=== PATIENT | male | born 1940 | race Caucasian/White ===

== ENCOUNTER 2016-06-19 21:50 | Inpatient (IN) | payer OTHER ==
[~2016-06-19] VITALS: Ht 170.2 cm; Wt 89.5 kg
[~2016-06-19 21:50] MED LIST: ADULT LOW DOSE81 M1 PO; ADVAIR 250/501 DISK IH; ALBUTEROL SULF8.5 GM IH; ALBUTEROL2.5 MG/3 M IH; ALKA-SELTZER P1 EAC7 PO; ALPHAGAN P100 DROP/1 RIGHT EYE; ALPHAGAN P100 DROP/5 RIGHT EYE; ALPRAZOLAM0.25 M2 PO; ALTACE10 MG PO; ALTACE2.5 MG PO; ALTACE5 MG PO; AMIODARONE HCL200 MG PO; ASCORBIC ACID500 M3 PO; ASPIR-LOW81 MG PO; ASPIRIN325 MG PO; ATORVASTATIN CA40 MG PO; BREO ELLIPTA I1 EACH IH; BUDESONIDE0.5 MG/2 M IH; CARVEDILOL12.5 MG PO; CARVEDILOL6.25 MG PO; CENTRUM SILVER1 EAC1 PO; CENTRUM SILVER1 EAC3 PO; CORDARONE200 MG PO; COREG3.125 M1 PO; DAILY VALUE1 EACH PO; ESSENTIAL DAIL1 EACH PO; FENOFIBRATE160 M1 PO; FLOMAX0.4 MG PO; FUROSEMIDE40 MG PO; GARLIC1 EACH PO; GARLIC1000 MG PO; GLIMEPIRIDE2 MG PO; GLUCOVANCE 51 TABLET PO; K-DUR20 MEQ PO; LASIX40 MG PO; LEVAQUIN750 MG PO; LEVEMIR FL100 UNIT/1 SC; LIDODERM 5% P1 PATCH TD; LIPITOR40 MG PO; LO-DOSE ASPIRIN81 M1 PO; LOFIBRA,TRIGLI160 MG PO; LOPRESSOR25 MG PO; LOPRESSOR50 MG PO; LUMIGAN 0.50 DROP/22 RIGHT EYE; MECLIZINE HCL25 MG PO; METFORMIN HCL500 MG PO; METOPROLOL SUC100 MG PO; METOPROLOL SUCC50 MG PO; METOPROLOL TART25 MG PO; METOPROLOL TART50 MG PO; MULTI-DAY VITA1 EACH PO; NITROSTAT0.4 MG SL; ODOR FREE GARL1 EAC1 PO; ODOR FREE GARL1 EACH PO; OMEPRAZOLE40 M1 PO; PERCOCET 5/31 TABLET PO; PERFOROMIS20 MCG/2 M IH; PREDNISONE10 MG PO; PRILOSEC40 MG PO; PROAIR HFA8.5 GM IH; PROVENTIL HFA6.7 GM IH; PROVENTIL,2.5 MG/3 M IH; RAMIPRIL10 MG PO; RAMIPRIL5 MG PO; SPIRIVA RESPIMAT4 GM IH; SPIRIVA1 INHALATI IH; SPIRONOLACTONE25 MG PO; STOOL SOFTENER250 MG PO; TOPROL XL25 MG PO; TOPROL XL50 MG PO; TYLENOL EXTRA500 MG PO; TYLENOL WITH C1 EACH PO; VENTOLIN HFA18 GM IH; XALATAN2.5 ML RIGHT EYE; XANAX0.25 MG PO; ZOFRAN4 MG PO
[2016-06-19 23:18] LABS: HEMATOCRIT 36.8 % (38.0-50.0); MCH 25.1 PG (29.0-34.0); MCHC 31.3 G/DL (30.0-36.0); MCV 80.2 FL (86-99); MEAN PLAT.VOLUME 11.6 uM^3 (9.0-12.4); PLATELET COUNT 230 K/uL (156-360); RBC DIS.WIDTH-CV 16.4 % (11.8-14.6); RBC DIS.WIDTH-SD 46.7 % (39-53); RED BLOOD COUNT 4.59 M/uL (4.00-5.50); WHITE BLOOD COUNT 9.3 K/uL (4.1-10.2)
[2016-06-19 23:21] LABS: CHLORIDE 98 mEq/L (99-109); POTASSIUM 4.7 mEq/L (3.7-5.4); SODIUM 136 mEq/L (136-147)
[2016-06-19 23:23] LABS: GLUCOSE 105 mg/dL (70-99)
[2016-06-19 23:24] LABS: ANION GAP 14 MEQ/L (2-14)
[2016-06-19 23:27] LABS: GFR ESTIMATE (CALCULATED) 45 mL/min/
[2016-06-19 23:28] LABS: UREA NITROGEN (BUN) 45 mg/dL (9-23)
[2016-06-19 23:30] LABS: TROP-I INTERPRETATION NEGATIVE; TROPONIN-I < 0.01 ng/mL (0.0-0.30)
[2016-06-20 10:30] VITALS: BP 99/59
[2016-06-20 11:28] VITALS: BP 99/59
[2016-06-20] MEDS ORDERED: LASIX40 MG PO (13:15)
[2016-06-20] MEDS ORDERED: XANAX0.5 MG PO (13:15)
[2016-06-20] MEDS ORDERED: SEROQUEL50 MG PO (13:20)
[2016-06-20] MEDS ORDERED: SERTRALINE HCL50 MG PO (13:20)
[2016-06-20 16:00] VITALS: BP 94/51
[2016-06-20 20:20] VITALS: BP 106/65
[2016-06-20 22:29] LABS: POINT-OF-CARE METER ID UU13113698
[2016-06-20 23:55] VITALS: BP 102/65
[2016-06-21 04:00] VITALS: BP 111/67
[2016-06-21 05:39] LABS: HEMATOCRIT 36.6 % (38.0-50.0); MCH 25.1 PG (29.0-34.0); MCHC 30.9 G/DL (30.0-36.0); MCV 81.2 FL (86-99); MEAN PLAT.VOLUME 11.2 uM^3 (9.0-12.4); PLATELET COUNT 210 K/uL (156-360); RBC DIS.WIDTH-CV 16.5 % (11.8-14.6); RBC DIS.WIDTH-SD 48.8 % (39-53); RED BLOOD COUNT 4.51 M/uL (4.00-5.50)
[2016-06-21 05:43] LABS: ALKALINE PHOSPHATASE 72 IU/L (3-129); ANION GAP 11 MEQ/L (2-14); CHLORIDE 97 MEQ/L (99-109); GFR ESTIMATE (CALCULATED) 57 mL/min/; POTASSIUM 4.9 MEQ/L (3.7-5.4); SAMPLE HEMOLYSIS CHECK 0; SAMPLE ICTERIC CHECK 0; SAMPLE LIPEMIA CHECK 0; SODIUM 134 MEQ/L (136-147); UREA NITROGEN (BUN) 37 mg/dL (9-23)
[2016-06-21 05:46] LABS: GLUCOSE 186 mg/dL (70-99); TOTAL BILIRUBIN 0.9 MG/DL (0.0-1.0)
[2016-06-21 07:30] VITALS: BP 105/75
[2016-06-21 12:01] VITALS: BP 100/59
[2016-06-21 12:43] LABS: ADD MIUA? NO; BILIRUBIN NEGATIVE; BLOOD NEGATIVE; COLOR YELLOW ((YELLOW)); GLUCOSE (STRIP) 100; KETONES NEGATIVE; LEUKOCYTES NEGATIVE; NITRITE NEGATIVE; PH, URINE 5.5 (5-8); PROTEIN (STRIP) NEGATIVE
[2016-06-21 14:11] LABS: UCUL ADDED? NO
[2016-06-21 16:40] VITALS: BP 94/54
[2016-06-21 20:00] VITALS: BP 111/59
[2016-06-21 20:39] LABS: POINT-OF-CARE METER ID UU13113698; POINT-OF-CARE USER ID ENVMNS
[2016-06-21 23:55] VITALS: BP 90/63
[2016-06-22 04:00] VITALS: BP 95/64
[2016-06-22 05:46] LABS: ANION GAP 11 MEQ/L (2-14); CHLORIDE 94 MEQ/L (99-109); GFR ESTIMATE (CALCULATED) 52 mL/min/; GLUCOSE 203 mg/dL (70-99); POTASSIUM 5.4 MEQ/L (3.7-5.4); SAMPLE HEMOLYSIS CHECK 0; SAMPLE ICTERIC CHECK 0; SAMPLE LIPEMIA CHECK 0; SODIUM 130 MEQ/L (136-147); UREA NITROGEN (BUN) 42 mg/dL (9-23)
[2016-06-22 06:09] LABS: HEMATOCRIT 36.5 % (38.0-50.0); MCH 24.6 PG (29.0-34.0); MCHC 30.7 G/DL (30.0-36.0); MCV 80.2 FL (86-99); MEAN PLAT.VOLUME 11.5 uM^3 (9.0-12.4); PLATELET COUNT 243 K/uL (156-360); RBC DIS.WIDTH-CV 16.3 % (11.8-14.6); RBC DIS.WIDTH-SD 47.7 % (39-53); RED BLOOD COUNT 4.55 M/uL (4.00-5.50)
[2016-06-22 06:12] LABS: WHITE BLOOD COUNT 11.7 K/uL (4.1-10.2)
[2016-06-22 07:15] VITALS: BP 90/61
[2016-06-22 12:02] VITALS: BP 87/59
[2016-06-22 16:14] LABS: POINT-OF-CARE METER ID UU13113698
[2016-06-22 16:55] VITALS: BP 93/63
[2016-06-22 20:08] VITALS: BP 100/67
[2016-06-23] VITALS (7 sets, daily range): BP systolic 92–104; BP diastolic 61–68
[2016-06-23 06:34] LABS: HEMATOCRIT 38.6 % (38.0-50.0); MCH 25.3 PG (29.0-34.0); MCHC 31.3 G/DL (30.0-36.0); MCV 80.6 FL (86-99); MEAN PLAT.VOLUME 11.5 uM^3 (9.0-12.4); NRBC (%) 1.9 /100 WBC (0-0); PLATELET COUNT 248 K/uL (156-360); RBC DIS.WIDTH-CV 16.5 % (11.8-14.6); RBC DIS.WIDTH-SD 48.3 % (39-53); RED BLOOD COUNT 4.79 M/uL (4.00-5.50)
[2016-06-23 06:39] LABS: EOSINOPHIL (%) 0 % (0-5); IMMATURE GRANULOCYTE (%) 1.4 % (0.0-0.7); IMMATURE GRANULOCYTE COUNT 0.2 K/uL; MONOCYTE (%) 5.9 % (3-12); MONOCYTE COUNT 0.7 K/uL (0-0.8); NEUTROPHIL (%) 84.4 % (45-76); NEUTROPHIL COUNT 10.1 K/uL (1.8-6.4)
[2016-06-23 07:20] LABS: ANION GAP 13 MEQ/L (2-14); CHLORIDE 93 MEQ/L (99-109); GFR ESTIMATE (CALCULATED) 42 mL/min/; GLUCOSE 184 mg/dL (70-99); SAMPLE HEMOLYSIS CHECK 0; SAMPLE ICTERIC CHECK 0; SAMPLE LIPEMIA CHECK 0; SODIUM 130 MEQ/L (136-147); UREA NITROGEN (BUN) 58 mg/dL (9-23)
[2016-06-23 07:26] LABS: POTASSIUM 6.5 MEQ/L (3.7-5.4)
[2016-06-24 05:42] VITALS: BP 89/56
[2016-06-24 06:51] LABS: MEAN PLAT.VOLUME 11.8 uM^3 (9.0-12.4); PLATELET COUNT 250 K/uL (156-360)
[2016-06-24 07:17] LABS: EOSINOPHIL (%) 0.1 % (0-5); IMMATURE GRANULOCYTE (%) 1.5 % (0.0-0.7); IMMATURE GRANULOCYTE COUNT 0.2 K/uL; LYMPHOCYTE COUNT 1.8 K/uL (1.0-2.8); MONOCYTE (%) 15.6 % (3-12); MONOCYTE COUNT 2.1 K/uL (0-0.8); NEUTROPHIL (%) 69.5 % (45-76); NEUTROPHIL COUNT 9.3 K/uL (1.8-6.4)
[2016-06-24 07:18] LABS: ANION GAP 12 MEQ/L (2-14); CHLORIDE 94 MEQ/L (99-109); GFR ESTIMATE (CALCULATED) 37 mL/min/; POTASSIUM 5.7 MEQ/L (3.7-5.4); SAMPLE HEMOLYSIS CHECK 0; SAMPLE ICTERIC CHECK 0; SAMPLE LIPEMIA CHECK 0; SODIUM 131 MEQ/L (136-147); UREA NITROGEN (BUN) 62 mg/dL (9-23)
[2016-06-24 07:19] LABS: GLUCOSE 90 mg/dL (70-99)
[2016-06-24 07:29] LABS: ABS NEUTROPHIL COUNT 9.63; ANISOCYTOSIS 1+; HEMATOCRIT 38.4 % (38.0-50.0); MACROCYTES OCC; MCH 24.8 PG (29.0-34.0); MCHC 31.3 G/DL (30.0-36.0); MCV 79.5 FL (86-99); OVALOCYTES OCC; PLAT.SUFFICIENCY ADEQUATE; POLYCHROMASIA OCC; RBC DIS.WIDTH-CV 16.7 % (11.8-14.6); RBC DIS.WIDTH-SD 48.4 % (39-53); RED BLOOD COUNT 4.83 M/uL (4.00-5.50); USER ID SDF; WHITE BLOOD COUNT 13.4 K/uL (4.1-10.2)
[2016-06-24 07:52] LABS: POINT-OF-CARE METER ID UU13113781
[2016-06-24 08:30] VITALS: BP 84/54
[2016-06-24 11:38] LABS: POINT-OF-CARE METER ID UU13113781
[2016-06-24 11:45] VITALS: BP 99/61
[2016-06-24 16:41] VITALS: BP 100/65
[2016-06-24 19:29] VITALS: BP 102/70
[2016-06-24 21:01] LABS: POINT-OF-CARE METER ID UU13113698
[2016-06-24 23:41] VITALS: BP 99/71
[2016-06-25 04:39] VITALS: BP 96/66
[2016-06-25 06:52] LABS: MEAN PLAT.VOLUME 11.5 uM^3 (9.0-12.4); PLATELET COUNT 234 K/uL (156-360)
[2016-06-25 07:16] LABS: MCH 24.9 PG (29.0-34.0); MCHC 31.4 G/DL (30.0-36.0); MCV 79.4 FL (86-99); RBC DIS.WIDTH-CV 16.6 % (11.8-14.6); RED BLOOD COUNT 4.66 M/uL (4.00-5.50); WHITE BLOOD COUNT 14.2 K/uL (4.1-10.2)
[2016-06-25 07:21] LABS: ANION GAP 12 MEQ/L (2-14); CHLORIDE 93 MEQ/L (99-109); GFR ESTIMATE (CALCULATED) 45 mL/min/; POTASSIUM 4.7 MEQ/L (3.7-5.4); SAMPLE HEMOLYSIS CHECK 0; SAMPLE ICTERIC CHECK 0; SAMPLE LIPEMIA CHECK 0; SODIUM 131 MEQ/L (136-147); UREA NITROGEN (BUN) 67 mg/dL (9-23)
[2016-06-25 07:22] LABS: GLUCOSE 50 mg/dL (70-99)
[2016-06-25 08:10] VITALS: BP 100/70
[2016-06-25 08:20] LABS: ABS NEUTROPHIL COUNT 11.09; ANISOCYTOSIS 1+; EOSINOPHIL (%) 0.1 % (0-5); IMMATURE GRANULOCYTE (%) 1.8 % (0.0-0.7); IMMATURE GRANULOCYTE COUNT 0.3 K/uL; MACROCYTES OCC; MONOCYTE (%) 15.1 % (3-12); MONOCYTE COUNT 2.2 K/uL (0-0.8); NEUTROPHIL COUNT 9.8 K/uL (1.8-6.4); OVALOCYTES OCC; PLAT.SUFFICIENCY ADEQUATE; USER ID STC
[2016-06-25 08:54] LABS: POINT-OF-CARE METER ID UU13113698
[2016-06-25 11:10] LABS: POINT-OF-CARE METER ID UU14174216
[2016-06-25 13:20] VITALS: BP 112/64
[2016-06-25 15:40] VITALS: BP 98/58
[2016-06-25 20:14] VITALS: BP 98/61
[2016-06-25 21:34] VITALS: BP 100/64
[2016-06-25 21:38] LABS: POINT-OF-CARE METER ID UU13113781
[2016-06-26] VITALS (7 sets, daily range): BP systolic 90–103; BP diastolic 50–67
[2016-06-26 06:47] LABS: MEAN PLAT.VOLUME 11.7 uM^3 (9.0-12.4); PLATELET COUNT 229 K/uL (156-360)
[2016-06-26 07:13] LABS: ANION GAP 9 MEQ/L (2-14); CHLORIDE 94 MEQ/L (99-109); GFR ESTIMATE (CALCULATED) 48 mL/min/; POTASSIUM 4.5 MEQ/L (3.7-5.4); SAMPLE HEMOLYSIS CHECK 0; SAMPLE ICTERIC CHECK 0; SAMPLE LIPEMIA CHECK 0; SODIUM 131 MEQ/L (136-147); UREA NITROGEN (BUN) 55 mg/dL (9-23)
[2016-06-26 07:18] LABS: GLUCOSE 86 mg/dL (70-99)
[2016-06-26 08:00] LABS: POINT-OF-CARE METER ID UU13113781
[2016-06-26 08:20] LABS: EOSINOPHIL (%) 0.8 % (0-5); EOSINOPHIL COUNT 0.1 K/uL (0-0.3); HEMATOCRIT 37.2 % (38.0-50.0); HEMATOLOGY COMMENT 1 SMEAR COMPATIBLE; IMMATURE GRANULOCYTE (%) 2.6 % (0.0-0.7); IMMATURE GRANULOCYTE COUNT 0.3 K/uL; LYMPHOCYTE COUNT 1.5 K/uL (1.0-2.8); MCH 24.8 PG (29.0-34.0); MCHC 31.2 G/DL (30.0-36.0); MCV 79.7 FL (86-99); MONOCYTE COUNT 1.6 K/uL (0-0.8); NEUTROPHIL (%) 69.8 % (45-76); NEUTROPHIL COUNT 8.1 K/uL (1.8-6.4); PLAT.SUFFICIENCY ADEQUATE; RBC DIS.WIDTH-CV 16.6 % (11.8-14.6); RED BLOOD COUNT 4.67 M/uL (4.00-5.50); USER ID TLW; WHITE BLOOD COUNT 11.6 K/uL (4.1-10.2)
[2016-06-26 08:24] LABS: NRBC (%) ND /100 WBC (0-0)
[2016-06-26 16:25] LABS: POINT-OF-CARE METER ID UU14174216
[2016-06-27 05:00] VITALS: BP 96/54
[2016-06-27 06:43] LABS: HEMATOCRIT 36.2 % (38.0-50.0); MCH 24.3 PG (29.0-34.0); MCHC 30.7 G/DL (30.0-36.0); MCV 79.4 FL (86-99); MEAN PLAT.VOLUME 11.6 uM^3 (9.0-12.4); PLATELET COUNT 220 K/uL (156-360); RBC DIS.WIDTH-CV 16.4 % (11.8-14.6); RBC DIS.WIDTH-SD 47.6 % (39-53); RED BLOOD COUNT 4.56 M/uL (4.00-5.50); WHITE BLOOD COUNT 11.9 K/uL (4.1-10.2)
[2016-06-27 07:16] LABS: ANION GAP 8 MEQ/L (2-14); CHLORIDE 96 MEQ/L (99-109); GFR ESTIMATE (CALCULATED) > 59 mL/min/; POTASSIUM 4.8 MEQ/L (3.7-5.4); SAMPLE HEMOLYSIS CHECK 0; SAMPLE ICTERIC CHECK 0; SAMPLE LIPEMIA CHECK 0; SODIUM 132 MEQ/L (136-147); UREA NITROGEN (BUN) 42 mg/dL (9-23)
[2016-06-27 07:17] LABS: GLUCOSE 116 mg/dL (70-99)
[2016-06-27 07:20] VITALS: BP 93/59
[2016-06-27 07:59] LABS: POINT-OF-CARE USER ID ENVKC36
[2016-06-27 11:00] VITALS: BP 92/58
[2016-06-27 11:38] LABS: POINT-OF-CARE USER ID ENVKC36
[2016-06-27] MEDS ORDERED: ADVAIR HFA120 INHALA IH (11:39)
[2016-06-27] MEDS ORDERED: PREDNISONE5 M1 PO (11:39)
[2016-06-27] MEDS ORDERED: XANAX0.5 MG PO (12:04)
[2016-06-27 16:00] VITALS: BP 95/65
[2016-06-27 17:02] LABS: POINT-OF-CARE METER ID UU13113698; POINT-OF-CARE USER ID ENVKC36
== END 2016-06-27 17:55 | DRG 291 ==
LOC: EME 21:50 → EDOF 06-20 06:10 → 4EAST 06-20 06:10
PROVIDERS: Hospitalist; Internal Medicine; Physician Assistant
DX: I13.0 Hypertensive heart and chronic kidney disease with heart failure and stage 1 through stage 4 chronic kidney disease, or unspecified chronic kidney disease (principal); I50.23 Acute on chronic systolic (congestive) heart failure; N18.3 Chronic kidney disease, stage 3 (moderate); N17.9 Acute kidney failure, unspecified; E87.5 Hyperkalemia; J96.11 Chronic respiratory failure with hypoxia; Z99.81 Dependence on supplemental oxygen; I42.9 Cardiomyopathy, unspecified; J44.9 Chronic obstructive pulmonary disease, unspecified; J61 Pneumoconiosis due to asbestos and other mineral fibers; I08.0 Rheumatic disorders of both mitral and aortic valves; E11.9 Type 2 diabetes mellitus without complications; R35.1 Nocturia; T50.1X5A Adverse effect of loop [high-ceiling] diuretics, initial encounter; G47.01 Insomnia due to medical condition; J45.909 Unspecified asthma, uncomplicated; G89.29 Other chronic pain; F32.9 Major depressive disorder, single episode, unspecified; E78.5 Hyperlipidemia, unspecified; K21.9 Gastro-esophageal reflux disease without esophagitis; F41.9 Anxiety disorder, unspecified; Z86.73 Personal history of transient ischemic attack (TIA), and cerebral infarction without residual deficits; Z87.891 Personal history of nicotine dependence; Z95.810 Presence of automatic (implantable) cardiac defibrillator; E66.9 Obesity, unspecified; Z68.30 Body mass index [BMI] 30.0-30.9, adult
CPT/HCPCS: 36415; 71010; 71020; 78452; 80048; 80053; 80061; 81003; 82043; 82570; 82948; 83036; 83605; 83880; 83880 GA; 84132 91; 84484; 85025; 85027; 87040; 93005; 94010; 94640; 94640 76; 94760; 94799; 99202; 99281; 99285; J1644; J1815; J1940; J1956; J2920; J7512

== ENCOUNTER 2016-07-02 21:04 | Emergency (ER) | payer OTHER ==
[~2016-07-02] VITALS: Ht 170.2 cm; Wt 91.9 kg
[~2016-07-02 21:04] MED LIST changes: +ADVAIR HFA120 INHALA IH; +PREDNISONE5 M1 PO; +SEROQUEL50 MG PO; +SERTRALINE HCL50 MG PO; +XANAX0.5 MG PO
[2016-07-02 21:45] LABS: HEMATOCRIT 37.3 % (38.0-50.0); MCH 23.8 PG (29.0-34.0); MCHC 30.8 G/DL (30.0-36.0); MCV 77.2 FL (86-99); MEAN PLAT.VOLUME 10.6 uM^3 (9.0-12.4); PLATELET COUNT 188 K/uL (156-360); RBC DIS.WIDTH-CV 17.6 % (11.8-14.6); RBC DIS.WIDTH-SD 47.7 % (39-53); RED BLOOD COUNT 4.83 M/uL (4.00-5.50)
[2016-07-02 21:53] LABS: CHLORIDE 101 mEq/L (99-109); POTASSIUM 4.9 mEq/L (3.7-5.4); SODIUM 134 mEq/L (136-147)
[2016-07-02 21:54] LABS: MAGNESIUM 2.1 mg/dL (1.3-2.7)
[2016-07-02 21:55] LABS: GLUCOSE 75 mg/dL (70-99)
[2016-07-02 21:57] LABS: ANION GAP 7 MEQ/L (2-14)
[2016-07-02 21:59] LABS: GFR ESTIMATE (CALCULATED) 57 mL/min/
[2016-07-02 22:00] LABS: UREA NITROGEN (BUN) 36 mg/dL (9-23)
[2016-07-02 23:19] VITALS: BP 94/65
== END 2016-07-02 23:21 ==
LOC: EME 21:04
PROVIDERS: Emergency Medicine
DX: E11.9 Type 2 diabetes mellitus without complications (principal); Z79.4 Long term (current) use of insulin; I11.0 Hypertensive heart disease with heart failure; I50.9 Heart failure, unspecified; J44.9 Chronic obstructive pulmonary disease, unspecified; J45.909 Unspecified asthma, uncomplicated; E78.5 Hyperlipidemia, unspecified; K21.9 Gastro-esophageal reflux disease without esophagitis; Z87.442 Personal history of urinary calculi; Z95.810 Presence of automatic (implantable) cardiac defibrillator; Z87.891 Personal history of nicotine dependence; Z79.84 Long term (current) use of oral hypoglycemic drugs; Z79.82 Long term (current) use of aspirin
CPT/HCPCS: 80048; 83735; 84100; 85027; 93005; 99281; 99284

== ENCOUNTER 2016-07-10 07:15 | Emergency (ER) | payer OTHER ==
[~2016-07-10] VITALS: Ht 182.9 cm; Wt 93.0 kg
[2016-07-10 07:43] LABS: POINT-OF-CARE METER ID UU13113702
[2016-07-10] MEDS ORDERED: HEPARIN SO5000 UNITS SC (09:38)
[2016-07-10] MEDS ORDERED: GLUCAGON1 MG IM (09:48)
[2016-07-10] MEDS ORDERED: MILK OF MAGN PO (09:51)
[2016-07-10] MEDS ORDERED: DULCOLAX10 MG PR (09:52)
[2016-07-10] MEDS ORDERED: FLEET ENEMA-AD118 ML PR (09:53)
[2016-07-10 10:04] VITALS: BP 89/66
== END 2016-07-10 11:19 | disposition hospice, home (50) ==
LOC: EME → EDSEX 07:15 → EDBD 07:15 → EME 11:19
PROVIDERS: Emergency Medicine
DX: E11.649 Type 2 diabetes mellitus with hypoglycemia without coma (principal); Z79.4 Long term (current) use of insulin; J44.9 Chronic obstructive pulmonary disease, unspecified; J45.909 Unspecified asthma, uncomplicated; I10 Essential (primary) hypertension; E78.5 Hyperlipidemia, unspecified; Z79.51 Long term (current) use of inhaled steroids; Z79.82 Long term (current) use of aspirin; Z87.891 Personal history of nicotine dependence; Z99.81 Dependence on supplemental oxygen
CPT/HCPCS: 82948; 99281; 99285